=== PATIENT | female | born 1985 | race Caucasian/White ===

== ENCOUNTER 2016-05-05 12:58 | Emergency (ER) | payer OTHER ==
[~2016-05-05] VITALS: Ht 170.2 cm; Wt 70.4 kg
[~2016-05-05 12:58] MED LIST: ANTIVERT25 MG PO; BENTYL10 MG PO; COLACE100 MG PO; DEPO-PROVER150 MG/ML IM; DEPO-PROVERA; FLAGYL500 MG PO; FLEXERIL10 MG PO; LEXAPRO10 MG PO; MIRALAX255 GM PO; Motrin PO; NAPROXEN500 MG PO; NOHOMEMEDS; PERCOCET 5/31 TABLET PO; PREFERA-OB P1 TABLET PO; PROCTOFOAM-HC10 GM PR; ULTRAM50 MG PO; ZOFRAN ODT4 MG PO; ZOFRAN4 MG PO
[2016-05-05 15:44] LABS: INFLUENZA A VIRAL ANTIGEN NEGATIVE; INFLUENZA B VIRAL ANTIGEN POSITIVE
[2016-05-05] MEDS ORDERED: ZITHROMAX250 MG PO (15:51)
[2016-05-05] MEDS ORDERED: HYCODAN SYRUP480 ML PO (15:51)
[2016-05-05 16:03] VITALS: BP 124/67
== END 2016-05-05 16:10 | disposition home or self-care (01) ==
LOC: EME 12:58
PROVIDERS: Emergency Medicine
DX: J10.1 Influenza due to other identified influenza virus with other respiratory manifestations (principal); J32.9 Chronic sinusitis, unspecified; H66.90 Otitis media, unspecified, unspecified ear
CPT/HCPCS: 87502; 87651 90; 99281; 99283

== ENCOUNTER 2016-06-23 04:04 | Emergency (ER) | payer OTHER ==
[~2016-06-23] VITALS: Ht 170.2 cm; Wt 75.4 kg
[~2016-06-23 04:04] MED LIST changes: +HYCODAN SYRUP480 ML PO; +ZITHROMAX250 MG PO
[2016-06-23 04:53] LABS: HEMATOCRIT 34.2 % (36.0-46.0); MCH 31.7 PG (29.0-34.0); MCHC 34.5 G/DL (30.0-36.0); MCV 91.9 FL (83-99); MEAN PLAT.VOLUME 10.6 uM^3 (9.5-12.4); PLATELET COUNT 215 K/uL (156-360); RBC DIS.WIDTH-CV 12.4 % (11.8-14.6); RBC DIS.WIDTH-SD 42.1 % (39-53); RED BLOOD COUNT 3.72 M/uL (3.80-5.20); WHITE BLOOD COUNT 7.5 K/uL (4.1-10.2)
[2016-06-23 05:01] LABS: CHLORIDE 111 mEq/L (99-109)
[2016-06-23 05:02] LABS: POTASSIUM 3.5 mEq/L (3.7-5.4); SODIUM 141 mEq/L (136-147)
[2016-06-23 05:03] LABS: GLUCOSE 101 mg/dL (70-99)
[2016-06-23 05:05] LABS: ANION GAP 10 MEQ/L (2-14)
[2016-06-23 05:07] LABS: GFR ESTIMATE (CALCULATED) > 59 mL/min/
[2016-06-23 05:08] LABS: UREA NITROGEN (BUN) 8 mg/dL (9-23)
[2016-06-23 05:13] LABS: TROP-I INTERPRETATION NEGATIVE; TROPONIN-I < 0.01 ng/mL (0.0-0.30)
[2016-06-23 05:15] LABS: QUANTITATIVE HCG < 4.0 MIU/ML
[2016-06-23 05:51] VITALS: BP 105/68
== END 2016-06-23 05:53 | disposition home or self-care (01) ==
LOC: EME → EDBD 04:04 → EME 05:53
PROVIDERS: Emergency Medicine
DX: R07.9 Chest pain, unspecified (principal); R06.00 Dyspnea, unspecified
CPT/HCPCS: 71010; 80048; 84484; 84702; 85027; 93005; 99281; 99284

== ENCOUNTER 2017-02-05 00:27 | Emergency (ER) | payer OTHER ==
[~2017-02-05] VITALS: Ht 170.2 cm; Wt 71.4 kg
[2017-02-05 00:51] VITALS: BP 144/62
[2017-02-05] MEDS ORDERED: REGLAN10 MG PO (02:44)
[2017-02-05] MEDS ORDERED: MOTRIN600 MG PO (02:44)
== END 2017-02-05 03:09 | disposition home or self-care (01) ==
LOC: EME 00:27 → EXP 00:27
DX: F07.81 Postconcussional syndrome (principal); W22.09XA Striking against other stationary object, initial encounter; I50.9 Heart failure, unspecified; F32.9 Major depressive disorder, single episode, unspecified
CPT/HCPCS: 70450; 99281; 99283

== ENCOUNTER 2017-06-01 15:27 | Emergency (ER) | payer OTHER ==
[~2017-06-01] VITALS: Ht 170.2 cm; Wt 66.9 kg
[~2017-06-01 15:27] MED LIST changes: +MOTRIN600 MG PO; +REGLAN10 MG PO
[2017-06-01 15:58] LABS: HEMATOCRIT 35.3 % (36.0-46.0); HEMOGLOBIN 12.2 G/DL (11.9-15.5); MCH 31.9 PG (29.0-34.0); MCHC 34.6 G/DL (30.0-36.0); MCV 92.2 FL (83-99); PLATELET COUNT 199 K/uL (156-360); RBC DIS.WIDTH-SD 40.6 % (39-53); RED BLOOD COUNT 3.83 M/uL (3.80-5.20); WHITE BLOOD COUNT 8.6 K/uL (4.1-10.2)
[2017-06-01 16:06] LABS: CHLORIDE 108 mEq/L (99-109); POTASSIUM 3.6 mEq/L (3.7-5.4); SODIUM 141 mEq/L (136-147)
[2017-06-01 16:08] LABS: GLUCOSE 85 mg/dL (70-99)
[2017-06-01 16:11] LABS: CREATININE 0.7 mg/dL (0.6-1.3); GFR ESTIMATE (CALCULATED) > 59 mL/min/
[2017-06-01 16:12] LABS: UREA NITROGEN (BUN) 14 mg/dL (9-23)
[2017-06-01 16:18] LABS: TROP-I INTERPRETATION NEGATIVE; TROPONIN-I < 0.01 ng/mL (0.0-0.30)
[2017-06-01 16:20] LABS: QUANTITATIVE HCG < 4.0 MIU/ML
[2017-06-01 16:53] LABS: D-DIMER ELISA < 150.00 ng/mLDDU (<230)
[2017-06-01 19:35] LABS: TROP-I INTERPRETATION NEGATIVE; TROPONIN-I < 0.01 ng/mL (0.0-0.30)
[2017-06-01 20:03] VITALS: BP 113/76
== END 2017-06-01 20:04 | disposition home or self-care (01) ==
LOC: EME 15:27
PROVIDERS: Physician Assistant
DX: R07.89 Other chest pain (principal); I50.9 Heart failure, unspecified; Z82.49 Family history of ischemic heart disease and other diseases of the circulatory system; Z79.3 Long term (current) use of hormonal contraceptives; F32.9 Major depressive disorder, single episode, unspecified
CPT/HCPCS: 71046; 80048; 84484; 84702; 85027; 85379; 93005; 99281; 99284